=== PATIENT | female | born 1990 | race Caucasian/White ===

== ENCOUNTER 2017-07-13 07:14 | Emergency (ER) | payer OTHER, MEDICAID ==
[~2017-07-13] VITALS: Ht 154.9 cm; Wt 63.5 kg
[~2017-07-13 07:14] MED LIST: AMOXICILLIN 50500 M1 PO; AZITHROMYCIN 2250 MG PO; BACTRIM DS TAB1 EACH PO; CEPHALEXIN 500500 M3 PO; CIPRO500 MG PO; DIPHENHIST50 MG PO; HYDROCODON-ACE1 EACH PO; HYDROCODONE-AP1 EAC6 PO; IBUPROFEN 800800 MG PO; MEDROLDOSEPACK PO; NAPROSYN500 MG PO; NOHOMEMEDICATIONS; NORCO 5-325 TA1 EACH; NORCO 5-325 TA1 EACH PO; NORFLEX100 MG PO; ONDANSETRON HCL4 M2 PO; PEPCID20 MG PO; PREDNISONE 20 M20 M1 PO; PREDNISONE 20 M20 MG PO; PROAIR HFA8.5 GM INH; PROMETHAZINE V473 ML PO; PROMETHAZINE-D120 ML PO; PROVENTIL HFA6.7 G1 INH; TESSALON PERLE100 MG PO; TRINATE TABLET1 TAB PO; ULTRAM 50MG TAB50 MG PO; VENTOLIN HFA INH8 GM IH; VISTARIL 25 MG25 M1 OR; ZOFRAN4 MG PO; ZPAK PO
[2017-07-13] MEDS ORDERED: VENTOLIN HFA 1818 GM INH (07:43)
[2017-07-13 07:52] VITALS: BP 125/84
== END 2017-07-13 08:14 | disposition home or self-care (01) ==
LOC: M.ERS 07:14
DX: J45.909 Unspecified asthma, uncomplicated (principal); G43.909 Migraine, unspecified, not intractable, without status migrainosus; F17.210 Nicotine dependence, cigarettes, uncomplicated; F10.99 Alcohol use, unspecified with unspecified alcohol-induced disorder; Z98.890 Other specified postprocedural states; Z88.7 Allergy status to serum and vaccine

== ENCOUNTER 2017-08-21 11:57 | Emergency (ER) | payer OTHER, MEDICAID ==
[~2017-08-21] VITALS: Ht 154.9 cm; Wt 65.8 kg
[~2017-08-21 11:57] MED LIST changes: +VENTOLIN HFA 1818 GM INH
[2017-08-21] MEDS ORDERED: TESSALON PERLE100 MG PO (12:10)
[2017-08-21 12:15] VITALS: BP 117/80
== END 2017-08-21 12:16 | disposition home or self-care (01) ==
LOC: M.ERS 11:57
DX: J06.9 Acute upper respiratory infection, unspecified (principal); J45.909 Unspecified asthma, uncomplicated; G43.909 Migraine, unspecified, not intractable, without status migrainosus; F17.210 Nicotine dependence, cigarettes, uncomplicated; Z86.14 Personal history of Methicillin resistant Staphylococcus aureus infection; Z88.7 Allergy status to serum and vaccine

== ENCOUNTER 2017-09-15 18:37 | Emergency (ER) | payer MEDICAID ==
[~2017-09-15] VITALS: Ht 154.9 cm; Wt 63.5 kg
[2017-09-15 18:47] VITALS: BP 123/68
[2017-09-15] MEDS ORDERED: NOHOMEMEDICATIONS (18:50)
[2017-09-15] MEDS ORDERED: WAL-ZYR10 M1 PO (18:58)
[2017-09-15] MEDS ORDERED: MEDROLDOSEPACK PO (18:58)
== END 2017-09-15 19:12 | disposition home or self-care (01) ==
LOC: M.ERS 18:37
DX: L50.1 Idiopathic urticaria (principal); J45.909 Unspecified asthma, uncomplicated; G43.909 Migraine, unspecified, not intractable, without status migrainosus; F17.210 Nicotine dependence, cigarettes, uncomplicated; Z88.7 Allergy status to serum and vaccine

== ENCOUNTER 2017-09-27 21:17 | Emergency (ER) | payer MEDICAID ==
[~2017-09-27] VITALS: Ht 154.9 cm; Wt 58.5 kg
[~2017-09-27 21:17] MED LIST changes: +WAL-ZYR10 M1 PO
[2017-09-27 21:39] LABS: URINE BILIRUBIN NEGATIVE (Negative); URINE BLOOD 3+ (Negative); URINE CLARITY CLEAR; URINE COLOR YELLOW; URINE GLUCOSE-RANDOM NEGATIVE (Negative); URINE KETONES TRACE (Negative); URINE LEUKOCYTES-REFLEX NEGATIVE (Negative); URINE NITRITE-REFLEX NEGATIVE (Negative); URINE PROTEIN NEGATIVE (Negative); URINE SPECIFIC GRAVITY 1.025 (1.005-1.030); URINE UROBILINOGEN 0.2 E.U./dl (0.2-1.0)
[2017-09-27 21:47] LABS: CASTS None Seen /LPF (None Seen); CRYSTALS None Seen /LPF (None Seen); MUCUS 4-6 Moderate strn/LPF (None Seen); SQUAMOUS 4-10 Moderate /LPF (0-3); TRANSITIONAL EPITHEL CELL 0-3 Few /LPF (None Seen); URINE RBC >20 Many /HPF (0-2); URINE WBC-REFLEX None Seen /HPF (0-5)
[2017-09-27 21:58] LABS: ABSOLUTE EOSINOPHILS 0.1 thou/uL (0.0-0.7); ABSOLUTE LYMPHOCYTES 2.4 thou/uL (0.8-5.3); ABSOLUTE MONOCYTES 0.6 thou/uL (0.0-1.2); ABSOLUTE NEUTROPHILS 4.4 thou/uL (1.6-8.1); BASOPHILS 0.6 %; EOSINOPHILS 1.2 %; HEMATOCRIT 43.9 % (37.0-47.0); HEMOGLOBIN 14.9 gm/dL (12.0-15.0); LYMPHOCYTES 32.2 %; MCH 30.3 pg (26.0-34.0); MCHC 33.9 g/dL (28.0-37.0); MCV 89.6 fL (80.0-100.0); MONOCYTES 8.1 %; MPV 9.8 fl. (7.2-11.1); NUCLEATED RBCS 0 /100WBC; PLATELET COUNT* 179 thou/uL (150-400); POLYS 57.9 %; RDW-CV 14.6 % (10.5-14.5); WBC 7.5 thou/uL (4.0-11.0)
[2017-09-27 22:06] LABS: CALCIUM 8.5 mg/dL (8.5-10.1); CREATININE 1.2 mg/dL (0.6-1.3); POTASSIUM 4.2 mmol/L (3.5-5.1)
[2017-09-27 22:11] LABS: ALBUMIN 3.7 g/dL (3.4-5.0); TOTAL BILIRUBIN 0.3 mg/dL (<0.1-1.0); TOTAL PROTEIN 6.9 g/dL (6.4-8.2)
[2017-09-27] MEDS ORDERED: NAPROSYN500 MG PO (22:25)
[2017-09-27 22:33] VITALS: BP 127/70
== END 2017-09-27 22:34 | disposition home or self-care (01) ==
LOC: M.ERS 21:17
PROVIDERS: Nurse Practitioner Family
DX: S39.011A Strain of muscle, fascia and tendon of abdomen, initial encounter (principal); J45.909 Unspecified asthma, uncomplicated; G43.909 Migraine, unspecified, not intractable, without status migrainosus; F17.210 Nicotine dependence, cigarettes, uncomplicated; Z88.8 Allergy status to other drugs, medicaments and biological substances; X58.XXXA Exposure to other specified factors, initial encounter; Y93.89 Activity, other specified; Y92.89 Other specified places as the place of occurrence of the external cause; Y99.8 Other external cause status

== ENCOUNTER 2017-10-01 20:27 | Emergency (ER) | payer OTHER, MEDICAID ==
[~2017-10-01] VITALS: Ht 154.9 cm; Wt 63.5 kg
[2017-10-01] MEDS ORDERED: PROCTOFOAM15 GM RECTAL (20:45)
[2017-10-01] MEDS ORDERED: COLACE100 MG PO (20:45)
[2017-10-01 20:55] VITALS: BP 137/91
== END 2017-10-01 21:05 | disposition home or self-care (01) ==
LOC: M.ERS 20:27
DX: K60.2 Anal fissure, unspecified (principal); J45.909 Unspecified asthma, uncomplicated; G43.909 Migraine, unspecified, not intractable, without status migrainosus; F17.210 Nicotine dependence, cigarettes, uncomplicated; Z86.14 Personal history of Methicillin resistant Staphylococcus aureus infection; Z88.7 Allergy status to serum and vaccine

== ENCOUNTER 2018-03-02 19:49 | Emergency (ER) | payer OTHER, MEDICAID ==
[~2018-03-02] VITALS: Ht 154.9 cm; Wt 65.8 kg
[~2018-03-02 19:49] MED LIST changes: +COLACE100 MG PO; +PROCTOFOAM15 GM RECTAL
[2018-03-02] MEDS ORDERED: ZOLOFT25 MG PO (20:00)
[2018-03-02] MEDS ORDERED: PREDNISONE50 MG PO (20:22)
[2018-03-02 20:37] VITALS: BP 98/63
== END 2018-03-02 20:38 | disposition home or self-care (01) ==
LOC: M.ERS 19:49
DX: L50.9 Urticaria, unspecified (principal); L25.9 Unspecified contact dermatitis, unspecified cause; F17.210 Nicotine dependence, cigarettes, uncomplicated; J45.909 Unspecified asthma, uncomplicated; G43.909 Migraine, unspecified, not intractable, without status migrainosus; Z88.7 Allergy status to serum and vaccine

== ENCOUNTER 2018-05-13 12:17 | Emergency (ER) | payer OTHER, MEDICAID ==
[~2018-05-13] VITALS: Ht 154.9 cm; Wt 67.1 kg
[~2018-05-13 12:17] MED LIST changes: +PREDNISONE50 MG PO; +ZOLOFT25 MG PO
[2018-05-13] MEDS ORDERED: NOHOMEMEDICATIONS (12:37)
[2018-05-13 13:09] LABS: INFLUENZA A ANTIGEN None Detected (None Detect); INFLUENZA B ANTIGEN None Detected (None Detect)
[2018-05-13] MEDS ORDERED: KEFLEX500 M1 PO (13:12)
[2018-05-13 13:13] LABS: URINE BILIRUBIN NEGATIVE (Negative); URINE BLOOD 1+ (Negative); URINE CLARITY CLEAR; URINE COLOR YELLOW; URINE GLUCOSE-RANDOM NEGATIVE (Negative); URINE KETONES NEGATIVE (Negative); URINE LEUKOCYTES-REFLEX TRACE (Negative); URINE NITRITE-REFLEX NEGATIVE (Negative); URINE PROTEIN NEGATIVE (Negative); URINE SPECIFIC GRAVITY 1.015 (1.005-1.030); URINE UROBILINOGEN 0.2 E.U./dl (0.2-1.0)
[2018-05-13] MEDS ORDERED: TESSALON PERLE100 M1 PO (13:14)
[2018-05-13] MEDS ORDERED: ACETAMINOPHEN-1 EAC1 PO (13:14)
[2018-05-13] MEDS ORDERED: PROMETHAZINE V473 ML PO (13:14)
[2018-05-13 13:46] LABS: BACTERIA-REFLEX 1-9 Few /HPF (None Seen); CASTS None Seen /LPF (None Seen); CRYSTALS None Seen /LPF (None Seen); MUCUS 4-6 Moderate strn/LPF (None Seen); SQUAMOUS 4-10 Moderate /LPF (0-3); URINE RBC 0-2 Rare /HPF (0-2); URINE WBC-REFLEX None Seen /HPF (0-5)
[2018-05-13 13:55] VITALS: BP 100/68
== END 2018-05-13 13:55 | disposition home or self-care (01) ==
LOC: M.ERS 12:17
PROVIDERS: Physician Assistant
DX: J20.9 Acute bronchitis, unspecified (principal); G43.909 Migraine, unspecified, not intractable, without status migrainosus; J45.909 Unspecified asthma, uncomplicated; F17.210 Nicotine dependence, cigarettes, uncomplicated; Z88.7 Allergy status to serum and vaccine; Z91.040 Latex allergy status; Z86.14 Personal history of Methicillin resistant Staphylococcus aureus infection

== ENCOUNTER 2018-11-11 19:30 | Emergency (ER) | payer OTHER, MEDICAID ==
[~2018-11-11] VITALS: Ht 154.9 cm; Wt 66.7 kg
[~2018-11-11 19:30] MED LIST changes: +ACETAMINOPHEN-1 EAC1 PO; +KEFLEX500 M1 PO; +TESSALON PERLE100 M1 PO
[2018-11-11] MEDS ORDERED: VENTOLIN HFA 1818 GM INH (19:46)
[2018-11-11] MEDS ORDERED: NABUMETONE 750750 M1 PO (19:53)
[2018-11-11] MEDS ORDERED: KEFLEX500 M1 PO (19:53)
[2018-11-11] MEDS ORDERED: BACTRIM DS TAB1 EACH PO (19:53)
[2018-11-11 20:28] VITALS: BP 114/72
== END 2018-11-11 20:28 | disposition home or self-care (01) ==
LOC: M.ERS 19:30
DX: L03.031 Cellulitis of right toe (principal); R60.0 Localized edema; J45.909 Unspecified asthma, uncomplicated; Z91.040 Latex allergy status; Z88.7 Allergy status to serum and vaccine; Z86.14 Personal history of Methicillin resistant Staphylococcus aureus infection

== ENCOUNTER 2019-05-07 12:16 | Emergency (ER) | payer OTHER, MEDICAID ==
[~2019-05-07] VITALS: Ht 154.9 cm; Wt 68.0 kg
[~2019-05-07 12:16] MED LIST changes: +NABUMETONE 750750 M1 PO
[2019-05-07 12:30] VITALS: BP 112/71
[2019-05-07 12:59] LABS: INFLUENZA A ANTIGEN Negative (Negative); INFLUENZA B ANTIGEN Negative (Negative)
[2019-05-07] MEDS ORDERED: TESSALON PERLE100 MG PO (13:14)
[2019-05-07] MEDS ORDERED: NAPROSYN500 MG PO (13:14)
[2019-05-07] MEDS ORDERED: MEDROLDOSEPACK PO (13:14)
[2019-05-07] MEDS ORDERED: ZITHROMAX500 MG PO (13:14)
== END 2019-05-07 13:24 | disposition home or self-care (01) ==
LOC: M.ERS 12:16
PROVIDERS: Nurse Practitioner Family
DX: J20.9 Acute bronchitis, unspecified (principal); G43.909 Migraine, unspecified, not intractable, without status migrainosus; J45.909 Unspecified asthma, uncomplicated; F17.210 Nicotine dependence, cigarettes, uncomplicated; Z91.040 Latex allergy status; Z88.7 Allergy status to serum and vaccine; Z86.14 Personal history of Methicillin resistant Staphylococcus aureus infection

== ENCOUNTER 2019-05-24 16:12 | Emergency (ER) | payer OTHER, MEDICAID ==
[~2019-05-24] VITALS: Ht 154.9 cm; Wt 65.8 kg
[~2019-05-24 16:12] MED LIST changes: +ZITHROMAX500 MG PO
[2019-05-24 17:25] LABS: URINE BILIRUBIN NEGATIVE (Negative); URINE BLOOD 1+ (Negative); URINE CLARITY CLEAR; URINE COLOR YELLOW; URINE GLUCOSE-RANDOM NEGATIVE (Negative); URINE KETONES TRACE (Negative); URINE LEUKOCYTES-REFLEX NEGATIVE (Negative); URINE NITRITE-REFLEX NEGATIVE (Negative); URINE PROTEIN NEGATIVE (Negative); URINE UROBILINOGEN 0.2 E.U./dl (0.2-1.0)
[2019-05-24 17:35] LABS: INFLUENZA A ANTIGEN Negative (Negative); INFLUENZA B ANTIGEN Negative (Negative)
[2019-05-24 17:36] LABS: SQUAMOUS >10 Many /LPF (0-3)
[2019-05-24 17:37] LABS: BACTERIA-REFLEX >30 Many /HPF (None Seen); CASTS None Seen /LPF (None Seen); CRYSTALS None Seen /LPF (None Seen); URINE RBC 3-10 Few /HPF (0-2); URINE WBC-REFLEX 0-5 Rare /HPF (0-5)
[2019-05-24] MEDS ORDERED: AUGMENTIN 875-1 EACH PO (19:40)
[2019-05-24] MEDS ORDERED: MEDROLDOSEPACK PO (19:40)
[2019-05-24] MEDS ORDERED: VENTOLIN HFA 1818 GM INH (19:40)
[2019-05-24 20:01] VITALS: BP 104/52
== END 2019-05-24 20:04 | disposition home or self-care (01) ==
LOC: M.ERS 16:12
PROVIDERS: Emergency Medicine Emergency Medical Services; Nurse Practitioner Family
DX: J21.9 Acute bronchiolitis, unspecified (principal); G43.909 Migraine, unspecified, not intractable, without status migrainosus; J45.909 Unspecified asthma, uncomplicated; F17.210 Nicotine dependence, cigarettes, uncomplicated; Z88.7 Allergy status to serum and vaccine; Z91.040 Latex allergy status; Z86.14 Personal history of Methicillin resistant Staphylococcus aureus infection

== ENCOUNTER 2019-10-02 19:47 | Emergency (ER) | payer OTHER, MEDICAID ==
[~2019-10-02] VITALS: Ht 152.4 cm; Wt 65.8 kg
[~2019-10-02 19:47] MED LIST changes: +AUGMENTIN 875-1 EACH PO
[2019-10-02 19:54] VITALS: BP 127/68
[2019-10-02] MEDS ORDERED: KEFLEX500 M1 PO (20:08)
== END 2019-10-02 20:18 | disposition home or self-care (01) ==
LOC: M.ERS 19:47
DX: L03.011 Cellulitis of right finger (principal); G43.909 Migraine, unspecified, not intractable, without status migrainosus; J45.909 Unspecified asthma, uncomplicated; F17.210 Nicotine dependence, cigarettes, uncomplicated; Z91.040 Latex allergy status; Z88.7 Allergy status to serum and vaccine; Z86.14 Personal history of Methicillin resistant Staphylococcus aureus infection

== ENCOUNTER 2020-06-02 18:06 | Emergency (ER) | payer OTHER, MEDICAID ==
[~2020-06-02] VITALS: Ht 154.9 cm; Wt 63.5 kg
[2020-06-02 18:54] LABS: ABSOLUTE EOSINOPHILS 0.1 thou/uL (0.0-0.7); ABSOLUTE LYMPHOCYTES 1.9 thou/uL (0.8-5.3); ABSOLUTE MONOCYTES 0.4 thou/uL (0.0-1.2); ABSOLUTE NEUTROPHILS 3.9 thou/uL (1.6-8.1); BASOPHILS 0.5 %; EOSINOPHILS 1.2 %; HEMATOCRIT 43.5 % (37.0-47.0); HEMOGLOBIN 14.7 gm/dL (12.0-15.0); LYMPHOCYTES 29.9 %; MCH 30.1 pg (26.0-34.0); MCHC 33.8 g/dL (28.0-37.0); MCV 89.2 fL (80.0-100.0); MPV 9.9 fl. (7.2-11.1); NUCLEATED RBCS 0 /100WBC; PLATELET COUNT* 193 thou/uL (150-400); POLYS 62.4 %; RBC 4.87 mil/uL (4.20-5.00); RDW-CV 14.1 % (10.5-14.5); WBC 6.3 thou/uL (4.0-11.0)
[2020-06-02 19:05] LABS: CALCIUM 9.1 mg/dL (8.5-10.1); CREATININE 0.9 mg/dL (0.6-1.3); POTASSIUM 4.2 mmol/L (3.5-5.1)
[2020-06-02 19:06] LABS: INR 1.1; PROTIME 11.6 Seconds (9.20-11.50)
[2020-06-02 19:20] LABS: CK-MB MASS 4.7 ng/mL (<0.5-3.6); TOTAL BILIRUBIN 0.3 mg/dL (<0.1-1.0); TOTAL PROTEIN 7.5 g/dL (6.4-8.2)
[2020-06-02] MEDS ORDERED: NAPROSYN500 MG PO (22:09)
[2020-06-02] MEDS ORDERED: FLEXERIL PO (22:09)
[2020-06-02 22:20] VITALS: BP 116/72
--- NOTE | 2020-06-03 09:12 | EKG ---
[place] [address] ELECTROCARDIOGRAM REPORT Name: EVANS REA Room: [facility]#: [id number] Admission: 06/02/20 Attend Phys: Discharge: 06/02/20 Date of : 89 Date of Service: 06/02/201817 Report #: [id number] THIS REPORT FOR: //name// [facility] ED Test Date: 2020-06-02 Test Time: 18:18:04 Pat Name: EVANS REA Department: Room: Gender: F Rn Embedded: [facility] : 1990 Requested By: Kelechi Jennings Order Number: [id number] MD: Jose Elias Jay Measurements Intervals [place] [facility] Rate: 91 P: 78 WY: 154 QRS: 35 QRSD: 83 T: 25 QT: 342 QTc: 421 Interpretive Statements Sinus rhythm Left atrial enlargement Compared to ECG 02/06/2013 00:18:42 no change Electronically Signed On 06-03-2020 9:12:26 [employer] by Jose Elias Jay [email or web address] <ELECTRONICALLY SIGNED> By: Jose Elias Jay MD, [facility] 06/03/20911 17 17 Jose Elias Jay MD, [facility] /EPI
== END 2020-06-02 22:20 | disposition home or self-care (01) ==
LOC: M.ERS 18:06
PROVIDERS: Family Medicine
DX: R07.89 Other chest pain (principal); Z20.828 Contact with and (suspected) exposure to other viral communicable diseases; J45.909 Unspecified asthma, uncomplicated; G43.909 Migraine, unspecified, not intractable, without status migrainosus; F17.210 Nicotine dependence, cigarettes, uncomplicated; Z91.040 Latex allergy status; Z88.7 Allergy status to serum and vaccine

== ENCOUNTER 2020-09-02 17:09 | Emergency (ER) | payer OTHER, MEDICAID ==
[~2020-09-02] VITALS: Ht 152.4 cm; Wt 67.1 kg
[~2020-09-02 17:09] MED LIST changes: +FLEXERIL PO
[2020-09-02] MEDS ORDERED: ENBRACE HR SOF1 EACH PO (17:27)
[2020-09-02] MEDS ORDERED: KEFLEX500 M1 PO (18:00)
[2020-09-02 18:39] VITALS: BP 125/77
== END 2020-09-02 18:40 | disposition home or self-care (01) ==
LOC: M.ERS 17:09
DX: T22.112A Burn of first degree of left forearm, initial encounter (principal); T22.111A Burn of first degree of right forearm, initial encounter; T31.0 Burns involving less than 10% of body surface; J45.909 Unspecified asthma, uncomplicated; G43.909 Migraine, unspecified, not intractable, without status migrainosus; F17.210 Nicotine dependence, cigarettes, uncomplicated; Z91.040 Latex allergy status; Z86.14 Personal history of Methicillin resistant Staphylococcus aureus infection; Z88.7 Allergy status to serum and vaccine; X17.XXXA Contact with hot engines, machinery and tools, initial encounter; Y93.89 Activity, other specified; Y92.89 Other specified places as the place of occurrence of the external cause; Y99.8 Other external cause status

== ENCOUNTER 2021-05-10 20:17 | Emergency (ER) | payer OTHER, MEDICAID ==
[~2021-05-10] VITALS: Ht 152.4 cm; Wt 72.6 kg
[~2021-05-10 20:17] MED LIST changes: +ENBRACE HR SOF1 EACH PO
[2021-05-10] MEDS ORDERED: PROAIR HFA8.5 GM INH (20:32)
[2021-05-10] MEDS ORDERED: TESSALON PERLE100 MG PO (21:20)
[2021-05-10] MEDS ORDERED: VENTOLIN HFA 1818 GM INH (21:20)
[2021-05-10] MEDS ORDERED: PREDNISONE 20 M20 MG PO (21:20)
[2021-05-10 21:30] VITALS: BP 140/67
== END 2021-05-10 21:31 | disposition home or self-care (01) ==
LOC: M.ERS 20:17
DX: J06.9 Acute upper respiratory infection, unspecified (principal); Z20.822 Contact with and (suspected) exposure to COVID-19; J45.909 Unspecified asthma, uncomplicated; G43.909 Migraine, unspecified, not intractable, without status migrainosus; Z79.899 Other long term (current) drug therapy; Z88.7 Allergy status to serum and vaccine; Z91.040 Latex allergy status